=== PATIENT | male | born 2000 | race African-American/Black ===

== ENCOUNTER 2018-07-29 13:00 | Emergency (ER) | payer SELFPAY ==
[2018-07-29 13:18] VITALS: BP 115/68; PULSE 57; TEMP 97.7; BMI 21.7
[2018-07-29] MEDS ORDERED: METOCLOPRAMIDE HCL 10 MG TABLET (FP) PO ONE ×2 (15:10→15:16)
[2018-07-29] MEDS ORDERED: KETOROLAC TROMETHAMINE 60 MG/2 ML VIAL IM ONE (15:10)
[2018-07-29] MEDS ORDERED: KETOROLAC TROMETHAMINE 60 MG/2 ML VIAL ONE (15:16)
--- NOTE | 2018-07-29 15:17 | PDOC ---
History of Present Illness - General Chief Complaint: Lightheaded Stated Complaint: LIGHTHEADED Time Seen by Provider: 07/29/18 15:04 History Source: Patient, Primary Care Provider Exam Limitations: Clinical Condition - History of Present Illness Initial Comments: 07/29/18 15:15 Patient with history of headaches for a year now present with complaint of five- day history of intermittent headaches, nausea and dizziness sensation. Patient reported his headache started after his father a year ago. Patient reported had workup done with his CT with no findings. Patient denies dizziness now but has been having intermittent lightheadedness for 5 days with nausea. Patient did not take anything for symptoms. Patient denies blurry vision, vomiting, chest pain. Patient denies any other symptoms Timing/Duration: other (5 days) Past History - Past Medical History Allergies/Adverse Reactions: Allergies Allergy/AdvReac Type Severity Reaction Status Date / Time No Known Allergies Allergy Verified 07/29/18 15:05 Home Medications: Ambulatory Orders Sumatriptan Succinate [Imitrex] 25 mg PO Q6H PRN #20 tablet 07/29/18 COPD: No CHF: No - Immunization History Immunization Up to Date: Yes - Suicide/Smoking/Psychosocial Hx Smoking History: Never smoked Hx Alcohol Use: No Drug/Substance Use Hx: No Review of Systems - Review of Systems Able to Perform ROS?: Yes Is the patient limited Vietnamese proficient: No Constitutional: No: Night Sweats, Weakness HEENTM: No: Eye Pain, Blurred Vision, Tearing, Double Vision Respiratory: No: Symptoms reported Cardiac (ROS): No: Symptoms Reported ABD/GI: Yes: Nausea. No: Vomiting Neurological: Yes: Headache. No: Paresthesia, Seizure, Tremors, Weakness, Ataxia, Dizziness All Other Systems: Reviewed and Negative *Physical Exam - Vital Signs Last Vital Signs Temp Pulse Resp BP Pulse Ox 97.7 F 57 L 17 115/68 100 07/29/18 13:14 07/29/18 13:14 07/29/18 13:14 07/29/18 13:14 07/29/18 13:14 - Physical Exam Comments: 07/29/18 15:18 GENERAL: Well developed, well nourished. Awake and alert. No acute distress. HEENT: Normocephalic, atraumatic. PERRLA, EOMI. No conjunctival pallor. Sclera are non- icteric. Moist mucous membranes. Oropharynx is clear. NECK: Supple. Full ROM. No JVD. Carotid pulses 2+ and symmetric, without bruits. No thyromegaly. No lymphadenopathy. CARDIOVASCULAR: Regular rate and rhythm. No murmurs, rubs, or gallops. Distal pulses are 2+ and symmetric. PULMONARY: No evidence of respiratory distress. Lungs clear to auscultation bilaterally. No wheezing, rales or rhonchi. ABDOMINAL: Soft. Non-tender. Non-distended. No rebound or guarding. No organomegaly. Normoactive bowel sounds. MUSCULOSKELETAL Normal range of motion at all joints. No bony deformities or tenderness. No CVA tenderness. EXTREMITIES: No cyanosis. No clubbing. No edema. No calf tenderness. SKIN: Warm and dry. Normal capillary refill. No rashes. No jaundice. NEUROLOGICAL: Alert, awake, appropriate. Cranial nerves 2-12 intact. Normal speech. Toes are down-going bilaterally. Gait is normal without ataxia. normal tandem walking. normal finger to nose-to hand cordination PSYCHIATRIC: Cooperative. Good eye contact. Appropriate mood and affect. General Appearance: Yes: Nourished, Appropriately Dressed. No: Apparent Distress Moderate Sedation - Procedure Monitoring Vital Signs: Procedure Monitoring Vital Signs Temperature 97.7 F 07/29/18 13:14 Pulse Rate 57 L 07/29/18 13:14 Respiratory Rate 17 07/29/18 13:14 Blood Pressure 115/68 07/29/18 13:14 O2 Sat by Pulse Oximetry (%) 100 07/29/18 13:14 Medical Decision Making - Medical Decision Making 07/29/18 15:19 Patient with history of headaches for a year now present with complaint of five- day history of intermittent headaches, nausea and dizziness sensation. Patient reported his headache started after his father a year ago. Patient reported had workup done with his CT with no findings. Patient denies dizziness now but has been having intermittent lightheadedness for 5 days with nausea. Clinical exam unremarkable with normal neuro exam. Symptoms likely migraine with aura. Toradol 60 mg IM and Reglan 10 mg by mouth ordered. Will reassess patient after 20 minutes. 07/29/18 16:10 Patient reported feeling much better. Patient is stable for discharge on Imitrex for headache as needed with neurology follow-up. *DC/Admit/Observation/Transfer Diagnosis at time of Disposition: Migraine headache with aura Qualifiers: Status migrainosus presence: without status migrainosus Intractability: not intractable Qualified Code(s): G43.109 - Migraine with aura, not intractable, without status migrainosus - Discharge Dispostion Disposition: HOME Condition at time of disposition: Stable Decision to Admit order: No - Prescriptions Prescriptions: Sumatriptan Succinate [Imitrex] 25 mg PO Q6H PRN #20 tablet PRN Reason: headache - Referrals Referrals: Golden Herrera MD [Staff Physician] - - Patient Instructions Printed Discharge Instructions: Frovatriptan May Offer Relief From Migraine Pain, Migraine -- Adult Additional Instructions: Take medications as prescribed. Follow-up referred neurology as soon as possible for follow-up care. - Post Discharge Activity
== END 2018-07-29 16:21 | disposition home or self-care (01) ==
LOC: JERFT 13:00
PROC: 3E0233Z Introduction of Anti-inflammatory into Muscle, Percutaneous Approach (ICD-10-PCS; principal; 2018-07-29)
DX: G43.109 Migraine with aura, not intractable, without status migrainosus (principal)
CPT/HCPCS: 99281-25